=== PATIENT | female | born 1950 | race Caucasian/White ===

== ENCOUNTER 2021-03-15 12:59 | Emergency (ER) | payer OTHER ==
[2021-03-15 13:06] VITALS: TEMP 97.4; BMI 19.3
[2021-03-15] MEDS ORDERED: MECLIZINE HCL 25 MG TABLET (FP) PO ONE (14:22)
[2021-03-15] MEDS ORDERED: MECLIZINE HCL 25 MG TABLET (FP) ONE (14:33)
[2021-03-15 15:34] VITALS: BP 137/83; PULSE 79
== END 2021-03-15 15:37 | disposition home or self-care (01) ==
LOC: FER 12:59
DX: R42 Dizziness and giddiness (principal)
CPT/HCPCS: 99283-25